=== PATIENT | female | born 1945 | race Caucasian/White ===

== ENCOUNTER 2016-11-02 13:26 | Emergency (ER) | payer MEDICARE, OTHER ==
--- NOTE | ~2016-11-02 | CR229 ---
[facility] A Service [facility] RADIOLOGY TEXT RESULTS PATIENT: TOMAS STERLING LOCATION: SED : 44 UNIT #: [id number] AGE: [address]: Carmelo Verdugo MD SEX: F ORDER DR: [id number] [place] [id number] E MR#: [id number] Acc #: [id number] NAME: TOMAS STERLING : 1945 SEX: F STUDY DATE/TIME: 11/02/2016 14:16 UNIT: SED ROOM: STUDY DESCRIPTION: CR Shoulder Min 2 View Lt Attending Physician: Carmelo Verdugo M.D. Ordering Physician: [facility] Primary Care Physician: Saroj Vera Jr., M.D. MEDICAL IMAGING REPORT This report is preliminary unless electronic signature is present. EXAM 3 views left shoulder 11/02/2016 HISTORY Left shoulder pain posteriorly after falling at 01:00 a.m. today. COMPARISON None. FINDINGS No acute left shoulder fracture or joint dislocation is identified. Osteopenic changes are present with mild degenerative change of the acromioclavicular joint. No acromioclavicular or coracoclavicular separation is evident. IMPRESSION Mild degenerative changes left acromioclavicular joint. Mild osteopenia. No acute left shoulder abnormality. Dictated by... Sabina Villa M.D. THIS IS AN ELECTRONICALLY VERIFIED REPORT Sabina Villa M.D. at 11/03/2016 7:08 AM LLH/pcl TD: 11/03/2016 02:02 JOB #: [id number] MEDICAL IMAGING REPORT [facility] A [facility] RADIOLOGY TEXT RESULTS PATIENT: TOMAS STERLING LOCATION: SED : 44 UNIT #: [id number] AGE: [address]: Carmelo Verdugo MD SEX: F ORDER DR: Page 1 of 1
--- NOTE | ~2016-11-02 | CR93 ---
[facility]. [facility] A Service of [facility] & [facility] RADIOLOGY TEXT RESULTS PATIENT: TOMAS STERLING LOCATION: SED : 44 UNIT #: [id number] AGE: [address]: Carmelo Verdugo MD SEX: F ORDER DR: [id number] [place] [id number] E MR#: [id number] Acc #: [id number] NAME: TOMAS STERLING : 1945 SEX: F STUDY DATE/TIME: 11/02/2016 14:16 UNIT: SED ROOM: STUDY DESCRIPTION: CR Elbow Min 3 Views Lt Attending Physician: Carmelo Verdugo M.D. Ordering Physician: [facility] Primary Care Physician: Saroj Vera Jr., M.D. MEDICAL IMAGING REPORT This report is preliminary unless electronic signature is present. EXAM 3 views left elbow 11/02/2016 HISTORY Left elbow pain after falling at 01:00 a.m. today. COMPARISON None. FINDINGS No acute fracture, joint dislocation or definite joint effusion is seen. No osteolytic or osteoblastic abnormality or retained radiopaque foreign body is seen. IMPRESSION Normal left elbow. Dictated by... Sabina Villa M.D. THIS IS AN ELECTRONICALLY VERIFIED REPORT Sabina Villa M.D. at 11/03/2016 7:08 AM LLH/alfredo TD: 11/03/2016 02:03 JOB #: [id number] MEDICAL IMAGING REPORT Page 1 of 1
--- NOTE | ~2016-11-02 | CR156 ---
[facility]. [facility] A Service of [facility] & [facility] RADIOLOGY TEXT RESULTS PATIENT: TOMAS STERLING LOCATION: SED : 44 UNIT #: [id number] AGE: [address]: Carmelo Verdugo MD SEX: F ORDER DR: [id number] [place] [id number] E MR#: [id number] Acc #: [id number] NAME: TOMAS STERLING : 1945 SEX: F STUDY DATE/TIME: 11/02/2016 14:16 UNIT: SED ROOM: STUDY DESCRIPTION: CR Humerus Min 2 View Lt Attending Physician: Carmelo Verdugo M.D. Ordering Physician: [facility] Primary Care Physician: Saroj Vera Jr., M.D. MEDICAL IMAGING REPORT This report is preliminary unless electronic signature is present. EXAM 2 views left humerus 11/02/2016 HISTORY Left humerus pain after falling at 01:00 a.m. today. COMPARISON STUDIES None. FINDINGS No left humeral fracture is seen. The elbow and shoulder joints appear intact. Mild osteopenic changes are present. IMPRESSION No acute abnormality of the left humerus. Dictated by... Sabina Villa M.D. THIS IS AN ELECTRONICALLY VERIFIED REPORT Sabina Villa M.D. at 11/03/2016 7:08 AM CANDY/alfredo TD: 11/03/2016 02:09 JOB #: [id number] MEDICAL IMAGING REPORT Page 1 of 1
[~2016-11-02 13:26] MED LIST: ASPIRIN PO; ATIVAN PO; BENZONATATE PO; BP MED; CLOPIDOGREL75 MG PO; DICYCLOMINE HCL20 MG PO; FIBER0.52 G PO; FLAGYL PO; HORMONE; HYDROCODON-ACE1 EAC1 PO; IMDUR PO; ISOSORBIDE MONO30 M1 PO; LEVAQUIN PO; LIPITOR PO; LIPITOR40 MG PO; LISINOPRIL PO; LOPRESSOR PO; LORAZEPAM1 MG PO; LORTAB 7.5-5001 TAB; LORTAB 7.51 TAB 7.5/ PO; LOSARTAN POTASS50 MG PO; METOPROLOL TAR25 MG PO; NITROSTAT0.4 MG; PANTOPRAZOLE SO40 MG; PHENERGAN W/CO120 ML; PLAVIX PO; RANEXA500 MG PO; ST. JOSEPH ASP325 MG PO; TRAZODONE PO; VOLTAREN75 MG PO; ZITHROMAX; ZOFRAN PO
[2016-11-02] MEDS ORDERED: ZOCOR (13:34)
[2016-11-02] MEDS ORDERED: COUMADIN (13:34)
[2016-11-02] MEDS ORDERED: COREG3.125 MG (13:34)
[2016-11-02] MEDS ORDERED: LISINOPRIL (13:34)
== END 2016-11-02 15:32 | disposition home or self-care (01) ==
LOC: SED 13:26
DX: M79.602 Pain in left arm (principal); Z79.01 Long term (current) use of anticoagulants; Z79.899 Other long term (current) drug therapy; Z79.82 Long term (current) use of aspirin
CPT/HCPCS: 73030; 73060; 73080; 99283